=== PATIENT | female | born 1975 | race Asian ===

== ENCOUNTER 2016-10-03 16:46 | Emergency (ER) | payer OTHER ==
[~2016-10-03] VITALS: Ht 152.4 cm; Wt 61.8 kg
[2016-10-03 17:03] VITALS: BP 123/78; RESP 16; O2SAT 99
--- NOTE | 2016-10-03 17:31 | ED.REPORT ---
HPI-General Illness Date of Service October 03, 2016 ED Provider: Nursing Notes Stated Complaint: SORE THROAT W/ WHITE CLOTS Chief Complaint: ENT & Mouth Allergies: Coded Allergies: No Known Allergies (Unverified , 10/03/16) General Time Seen by MD: 17:31 Physical Exam Vital Signs Vital Signs Date Time Temp Pulse Resp B/P Pulse Ox O2 Delivery O2 Flow Rate FiO2 10/03/16 17:03 37 93 16 123/78 99 Room Air Kuldeep Marte MD October 03, 2016 17:31
--- NOTE | 2016-10-03 18:22 | ED.REPORT ---
HPI-Sore Throat ONLY HPI/PE done October 03, 2016 ED Provider: Kuldeep Marte MD A 40 year old female with a history of asthma and depression presents to the ED with a sore throat onset yesterday. The patient also reports diaphoresis, left ear pain, and "white spots" in her throat. She denies other symptoms. Nursing Notes Stated Complaint: SORE THROAT W/ WHITE CLOTS Chief Complaint: ENT & Mouth Nursing Notes Reviewed: Yes Allergies: Coded Allergies: No Known Allergies (Unverified , 10/03/16) General Time Seen by MD: 18:22 Chief Complaint Sore throat Hx Obtained From: Patient Arrived By: Walk-in Onset Occurred: Yesterday Symptom Duration: Since onset Location: : Tonsil left: Tonsil right Quality: Painful Severity: Current: Moderate Severity: Maximum: Moderate Pertinent Negative: Relieved by nothing Context: Immunization Status General: Unknown Recent Healthcare: No recent doctor visit Past Medical History Past Medical History Asthma Depression Past Surgical History None reported Smoking History Unknown if Ever Smoker Ambulatory Status Independent Review of Systems Review of Systems Note: + White spots in throat Constitutional: Denies: Fever Ears / Nose / Throat: Reports: Earache left, Sore throat Respiratory: Denies: Non-productive cough, Shortness of breath GI: Denies: Diarrhea, Vomiting Skin: Reports Diaphoresis Complete sys rev & neg: except as marked. Physical Exam Initial Vital Signs Vital Signs (First) Date Time Temp Pulse Resp B/P Pulse Ox O2 Delivery O2 Flow Rate FiO2 10/03/16 17:03 37 93 16 123/78 99 Room Air Initial VS: Reviewed Head / Eyes: Atraumatic, Normocephalic Respiratory: Breath sounds normal, Clear to auscultation, No respiratory distress Cardiovascular: Regular rate & rhythm, Heart sounds normal Skin: Warm, Dry, No cyanosis Neurologic: Alert, Oriented, Nonfocal Psychiatric: Mood/affect normal, Behavior normal, Normal thought content General/Constitutional: Awake, Alert ENT: Airway patent, Mucous membranes moist Pharynx / Tonsils / Uvula: Positive: Tonsillar erythema L, Tonsillar erythema R , Tonsillar exudate L Left Ear / Mastoid: Positive: Tympanic membrane bulging, Tympanic membrane red Dull left TM Normal right TM Neck: Supple, Full range of motion Interpretation & Diagnostics RAPID STREP NEGATIVE Re-Eval/Medical Decision Med Decision/Clinical Course No stridor trismus or drooling. No signs of peritonsillar abscess. The left eardrum is dull red and bulging. Right looks normal. Strep screen was negative. I will place her on amoxicillin for the otitis. Short course of opiates for pain. Recommend close outpatient follow-up. Re-Evaluation/Progress : Time of Eval: 18:27 Patient Status: Condition improved Re-Evaluation/Progress Note: Discussed with patient physical exam findings, diagnosis, and plan for discharge. Follow-up and return to the ER instructions given. Patient agrees with plan for care and all questions were addressed. Counseled Regarding: Diagnosis, Need for follow-up, When/why to return to ED Discharge & Departure Primary Impression: Pharyngitis Pharyngitis/tonsillitis etiology: unspecified etiology Qualified Code: J02.9 - Acute pharyngitis, unspecified Additional Impression: Otitis media Otitis media type: suppurative Laterality: left Chronicity: acute Recurrence: not specified as recurrent Spontaneous tympanic membrane rupture: without spontaneous rupture Qualified Code: H66.002 - Acute suppurative otitis media without spontaneous rupture of ear drum, left ear Disposition: Home Discharge Condition All VS Reviewed: Yes Condition: Improved Patient Instructions: Otitis Media (ED), Pharyngitis (ED) Additional Instructions: Thank you for entrusting us with your care. Please take amoxicillin three times daily for ten days, as prescribed. 1-2 Lincoln every six hours as needed for pain. Do not drink alcohol, drive, or consume acetaminophen while taking Lincoln. This is an opiate, use it sparingly. Call your primary care provider on Wednesday for a follow-up appointment. Return to the ER with any new or worsening symptoms. Referrals: OTHER,PHYSICIAN (PCP) (Family) Scribe Attestation Portions of this note were transcribed by Bianca Lafleur. I, Dr. Leggett, personally performed the history, physical exam, and medical decision-making; I reviewed and confirmed the accuracy of the information in the transcribed note. Signed by: Christie Orellana, 10/03/2016, 19:55 Jeff Leggett DO October 03, 2016 18:22 BIANCA LAFLEUR October 03, 2016 18:25
[2016-10-03] MEDS ORDERED: Dexamethasone 20 mg/2 mL Oral Solution PO ONE (18:25)
== END 2016-10-03 19:04 | disposition home or self-care (01) ==
LOC: SED 16:46
DX: J02.9 Acute pharyngitis, unspecified (principal); H66.002 Acute suppurative otitis media without spontaneous rupture of ear drum, left ear; F32.9 Major depressive disorder, single episode, unspecified; J45.909 Unspecified asthma, uncomplicated